=== PATIENT | female | born 1965 | race Hispanic/Latino ===

== ENCOUNTER 2017-11-09 15:26 | Outpatient (CLI) | payer BC ==
[~2017-11-09 15:26] MED LIST: Iopamidol 370 76% 100 ML VIAL ONE
== END 2017-11-09 15:27 | disposition home or self-care (01) ==
LOC: BICCT 15:26
PROVIDERS: ATTEND Internal Medicine Gastroenterology
DX: R10.32 Left lower quadrant pain (principal); K21.9 Gastro-esophageal reflux disease without esophagitis; R19.5 Other fecal abnormalities; M85.88 Other specified disorders of bone density and structure, other site
CPT/HCPCS: 74177

== ENCOUNTER 2019-03-08 15:10 | Outpatient (CLI) | payer BC ==
--- NOTE | 2019-03-08 15:28 | RAD ---
LEFT MIDDLE FINGER 3 VIEWS: HISTORY: Pain and swelling following an injury. FINDINGS: There is some minimal trabecular irregularity and subchondral irregularity of the distal aspect of th e middle phalanx with minimal soft tissue swelling. This could be residual from a healed or nearly h ealed fracture. No significant malalignment. IMPRESSION: Minimal trabecular irregularity and some subchondral irregularity of the distal aspect of the middle phalanx of the middle finger having the appearance of healed or healing fracture. Consider another s hort-term followup study over 6 - 8 weeks to demonstrate any additional healing/stability. POS: OFF
== END 2019-03-08 15:11 | disposition home or self-care (01) ==
LOC: SCSRAD 15:10
PROVIDERS: ATTEND Nurse Practitioner Family
DX: M79.645 Pain in left finger(s) (principal); M20.092 Other deformity of left finger(s)

== ENCOUNTER 2021-01-30 11:45 | Outpatient (CLI) | payer BC | END 2021-01-30 11:46 | disposition home or self-care (01) | LOC: BICULT 11:45 | PROVIDERS: ATTEND Family Medicine | DX: R10.9 Unspecified abdominal pain (principal) | CPT/HCPCS: 76770 ==